=== PATIENT | female | born 1990 | race Caucasian/White ===

== ENCOUNTER 2021-10-25 14:12 | Outpatient (CLI) | payer OTHER, SELFPAY ==
[2021-10-25 14:44] LABS: Hematocrit 37.7 % (37.0-47.0); Hemoglobin 13.1 g/dL (12.0-15.0); Mean Corpuscular HGB Conc 34.7 g/dl (32-36); Mean Corpuscular Hemoglobin 29.9 pg (26-34); Mean Corpuscular Volume 86.1 fl (80-100); Mean Platelet Volume 10.6 fl (7.4-10.4); Platelet Count Result 268 k/mm3 (150-375); Red Blood Count 4.38 M/mm3 (4.2-5.4); Red Cell Distribution Width 12.9 % (11.5-14.5)
== END 2021-10-25 14:13 | disposition home or self-care (01) ==
LOC: ANHSURGERY 14:17
PROVIDERS: PCP Emergency Medicine; Visit Provider Obstetrics & Gynecology Gynecologic Oncology
DX: Z01.812 Encounter for preprocedural laboratory examination (principal)
CPT/HCPCS: 36415; 85027; 86850; 86900; 86901

== ENCOUNTER 2021-10-31 00:42 | Day surgery (SDC) | payer OTHER, SELFPAY ==
--- NOTE | 2021-10-23 15:22 | PC.NURSE ---
Report to the Outpatient Waiting Room, entrance under the green pavilion located off [facility], at time _1100__ on date _10/31/21__. OR Time: __1300__. - You and your visitor will be asked a series of questions to screen for COVID 19 for your protection. - Only one visitor is allowed at this time. - The patient visitor is requested to leave or wait in car when not with patient. - A mask is required within the hospital. Patients may have clear liquids (water, carbonated beverages, clear teas, apple juice) until 3 hours prior to surgery with a maximum of 20 ounces. - No food from midnight until time of surgery - Infants may have breast milk until 4 hours before surgery, formula 6 hours prior to surgery. - Children will be allowed to drink immediately following surgery. If applicable, please bring a bottle or sippy cup to assist with drinking. Juice, water, soda, and popsicles are readily available. For infants on formula, please bring formula the day of surgery. Pacifiers are allowed. Take the following medications with a SIP of water the morning of surgery: _birth control and inhaler if needed_ Medications to discontinue per physician _vitamins 3 days prior to surgery____ Date to take last dose Please no make-up, nail indonesian, hairspray, perfume, deodorant, or body powder the day of surgery. No jewelry (including any body piercings) or valuables the day of surgery, leave them at home. Please take a shower or bath the night before, or the morning of, surgery with an antibacterial soap. Wear comfortable, loose fitting clothing. Children are encouraged to wear pajamas. - Jewelry must be removed prior to entering the operating room. Rings and piercings that are not removed may be cut off. - The hospital will not accept responsibility for valuables. - Please leave all valuables, including medications, at home the day of surgery. If you are going home after surgery, a licensed transporter driver must drive you home. - NO public transportation without another adult. - We recommend that an adult stay with you for 24 hours following discharge. - We also recommend that you do not drive, make important decision, drink alcoholic beverages, or take any drugs that were not prescribed by your health care provider for at least 24 hours after your discharge time. For Pediatric surgeries, we recommend two adults accompany the child home (only one inside the building at this time). Follow any additional instructions given to you from your surgeon. If you or anyone in your household have experienced Covid symptoms in the past week, please notify your surgeon or the nurse liaison at the phone number below for possible testing. Telephone instructions given to _patient_and asked if any additional questions and then verbalized understanding. Patient advised to call surgeon office or pre surgery nurse liaison [phone] if any additional questions.
[2021-10-23 15:33] VITALS: BMI 19.3
--- NOTE | 2021-10-30 12:56 | WPDANESEPPF ---
Anes - Initial Pre Proc Eval Procedure: Operation Date: 10/31/21 13:00 Proposed Procedures p Diagnostic Laparoscopy, Bilateral Salpingectomy - Beata Urban DO Date/Time: 10/30/21 12:56 Surgeon: Beata Urban DO Pre Op Diagnosis: desires surgical sterility Patient Data Age: 31 Gender: F Height: 1.57 m Weight: 48 kg Allergies Allergy/AdvReac Type Severity Reaction Status Date / Time No Known Allergies Allergy Verified 10/31/21 11:22 Home Medications Medication Instructions Recorded Confirmed Type alprazolam 0.25 mg tablet 1 tablet PO PRN 10/23/21 10/31/21 History methylphenidate HCl 10 mg tablet 1 tablet PO PRN 10/23/21 10/31/21 History norgestimate-ethinyl estradiol 1 tablet PO DAILY 10/23/21 10/31/21 History 0.18 mg/0.215mg/0.25mg-35 mcg(28)tablet (Tri Femynor) Patient hx anesthesia problems: none Family hx anesthesia problems: none Results Review: All pre-operative results and documents have been reviewed as part of the pre-operative evaluation. [facility] Past Medical History Medical History (Updated 10/30/21 @ 12:56 by George Rooney DO) Anxiety Social History Social History Smoking packs per day: 1 Smoking cigarettes per day: 20.0 Years smoked: 14 Smoking pack-years: 14.00 Smoking status: Current every day smoker Tobacco type: cigarettes Alcohol intake: current Alcohol use details: 1 drink a month Substance use: never Substance use type: does not use Living arrangements: with family Spiritual care concerns: No Anes - Eval Final PreProcedure Day of Procedure 10/30/21 12:56 Patient weight: thin Heart: regular rate and rhythm Lungs: clear to auscultation Airway: Mallampati scale class II Neurological: alert and oriented Last oral intake: >/= 8 hours ASA classification: II Emergent: no Anesthetic plan: proceed Anesthesia type and monitoring: general ETT and standard monitoring Results Review: All pre-operative results and documents have been reviewed as part of the pre-operative evaluation. Informed Consent: The patient's anesthetic plan and its attendant risks and benefits were discussed with the patient/family/POA. Questions were solicited and answers provided to the satisfaction of the patient/family/POA.
[2021-10-31] VITALS (9 sets, daily range): BP systolic 114–147; BP diastolic 64–86; PULSE 50–102; RESP 10–16; TEMP 36.7–37.1; O2SAT 100
[2021-10-31] MEDS: ACETAMINOPHEN 500 MG TABLET 1000 MG PO (11:33)
[2021-10-31] MEDS: GABAPENTIN 300 MG CAPSULE PO (11:33)
[2021-10-31] MEDS: LACTATED RINGERS 1,000 ML 30 ML IV CONT ×2 (11:51→13:52)
--- NOTE | 2021-10-31 12:17 | PM.IMHP ---
H&P: HPI History of Present Illness Date/Time: 10/31/21 12:17 Chief Complaint: I'm here for my surgery Narrative: Janelle presents with undesired fertility requesting tubal sterilization. Review of Systems Review of Systems: All systems reviewed & are unremarkable except as noted in HPI and below PMFSH Past Medical History Medical History (Updated 10/31/21 @ 12:19 by Beata Urban DO) Anxiety Social History Social History Smoking packs per day: 1 Smoking cigarettes per day: 20.0 Years smoked: 14 Smoking pack-years: 14.00 Smoking status: Current every day smoker Tobacco type: cigarettes Alcohol intake: current Alcohol use details: 1 drink a month Substance use: never Substance use type: does not use Living arrangements: with family Spiritual care concerns: No Meds Home Medications and Allergies Home Medications Medication Instructions Recorded Confirmed Type alprazolam 0.25 mg tablet 1 tablet PO PRN 10/23/21 10/31/21 History methylphenidate HCl 10 mg tablet 1 tablet PO PRN 10/23/21 10/31/21 History norgestimate-ethinyl estradiol 1 tablet PO DAILY 10/23/21 10/31/21 History 0.18 mg/0.215mg/0.25mg-35 mcg(28)tablet (Tri Femynor) Allergies Allergy/AdvReac Type Severity Reaction Status Date / Time No Known Allergies Allergy Verified 10/31/21 11:22 Vital Signs Vital Signs - 24 hr 10/31/21 11:17 Temperature 37.1 C Pulse Rate 102 H Respiratory Rate 16 Blood Pressure 125/72 Pulse Oximetry 100 Oxygen Delivery Room Air Exam Const: General: comfortable and no acute distress Chest: Other: Normal rate and rhythm Resp: Effort & Inspection: normal respiratory effort Cardio: Rate: regular rate Rhythm: regular rhythm GI: GI Palp: Yes Soft to palpation Auscultation: normal bowel sounds Skin: General skin exam: normal color and no rashes or lesions noted Neuro: General: gait normal Speech: normal speech Motor exam (neuro): 5/5 motor strength present throughout Psych: Mental Status: mental status grossly normal Assessment and Plan Assessment and plan (1) Sterilization: Code(s): Z30.2 - Encounter for sterilization Status: Acute Assessment and Plan: Undesired fertility Plan Diagnostic laparoscopy, bilateral salpingectomy
--- NOTE | 2021-10-31 12:20 | WPDHPUPDATE1 ---
History and Physical Update Update Date/Time: 10/31/21 12:20 History and Physical has been reviewed, including an updated exam of the patient. There are NO changes in the patient's condition. Risks, benefits, and alternatives have been discussed and questions answered. Patient agrees to proceed with procedure.
[2021-10-31] MEDS: BUPIVACAINE HCL 0.25% PF 30 ML VIAL INFILTRATE (13:36)
--- NOTE | 2021-10-31 13:37 | P.OP_ITS ---
Procedure Note - Detailed Date of Procedure 10/31/21 Pre-op Diagnosis Undesired fertility Post-op Diagnosis Same Procedure Performed Diagnostic laparoscopy, bilateral salpingectomy Surgeon Beata Urban DO [employer] Indications Undesired fertility Findings Normal appearing vulva and vaginal canal. Internally, the liver, gallbladder, intestines and pelvic organs appeared normal. Description of Procedure Patient was taken to the operating room she was placed under general anesthesia. She was prepped and draped in the normal sterile fashion in a dorsal lithotomy position. No preoperative antibiotics were indicated. A time-out was performed. A speculum was placed in the vagina and the cervix was visualized using a speculum. The anterior lip was grasped with a single-tooth tenaculum. A Kroner uterine manipulator was introduced. The patient was then placed in low lithotomy, gloves were changed and attention was then turned to the abdomen. The skin below the umbilicus was grasped with 2 penetrating towel clamps and elevated. The skin was injected with local anesthetic and a small incision was made. A Veress needle was introduced and saline water drop test was performed. Once intraperitoneal placement was confirmed, CO2 insufflation was started and the abdomen was brought to a filling pressure of 15 mmHg. Patient was then placed in steep Trendelenburg position. A 5 mm trocar was introduced under direct visualization. Survey of the abdomen revealed no evidence of bowel or vascular injury upon entry. Pelvic organs were surveyed. Additional port sites of the right and left lower quadrants were identified, injected and incised. Additional 5 mm trocars were introduced. The right tube was then elevated and was cauterized and transected off using the LigaSure. It was then passed off through the boilermaker's assistant port. Procedure was repeated in identical fashion on the left side. The surgical sites were noted to be hemostatic. All instruments and trocars were removed from the abdomen CO2 gas was allowed to escape. Incision sites were closed with subcuticular 4-0 Monocryl and covered with Steri-Strips. Uterine manipulator was then taken out of the bladder was noted to be filling quickly during the procedure, the patient's bladder was drained successfully using a straight cath. The patient was taken to the recovery room in stable condition. All instruments and sponge counts were correct at the conclusion of the procedure. Estimated Blood Loss 5 IV Fluids 900 Drains No Packing No Pathology Yes Complications No immediate complications Condition Stable Disposition PACU
[2021-10-31] MEDS: fentaNYL CITRATE INJ (*CRX) 100 MCG/2 ML VIAL 25 MCG IV PUSH ×2 (13:58→14:05)
[2021-10-31] MEDS: oxyCODONE HCL (*CRX) 5 MG TAB IR PO (14:59)
== END 2021-10-31 15:49 | disposition home or self-care (01) ==
PROVIDERS: PCP Emergency Medicine; Visit Provider Obstetrics & Gynecology Gynecologic Oncology
PROC: (CPT 49320; principal; 2021-10-31 13:00)
DX: Z30.2 Encounter for sterilization (principal); F41.9 Anxiety disorder, unspecified; F17.210 Nicotine dependence, cigarettes, uncomplicated
CPT/HCPCS: 58661; 88302; A9270; J0330; J1100; J2250; J2405; J3010; J7030; J7120